=== PATIENT | male | born 1985 | race Caucasian/White ===

== ENCOUNTER 2022-05-01 05:56 | Day surgery (SDC) | payer BC, OTHER ==
--- NOTE | 2022-04-29 15:29 | RAD REPORT ---
EXAM DESCRIPTION: RAD - Chest Pa And Lat (2 Views) - 04/29/2022 3:21 pm CLINICAL HISTORY: Pre op pending hernia surgery COMPARISON: No comparisons FINDINGS: Lines: None. Lungs: No evidence of edema or pneumonia. Pleural: No significant pleural effusions or pneumothorax. Cardiac: The heart size is within normal limits. Bones: No acute fractures. Other: IMPRESSION: No acute cardiopulmonary disease.
[2022-04-29 15:31] LABS: Absolute Lymphocytes (CBC) 1.6 K/uL (0.7-4.9); Hematocrit 42.8 % (39.6-49.0); Lymphocytes % 18.3 % (15.3-44.8); MPV 6.9 fL (7.6-11.3); RBC Red Blood Cell Count 5.09 M/uL (4.33-5.43)
[2022-04-29 15:43] LABS: Potassium 3.8 mmol/L (3.5-5.1)
[2022-04-29 15:51] LABS: SARS-CoV-2 Antigen Rapid Res Negative (Negative)
[2022-05-01] MEDS ORDERED: CEFAZOLIN SODIUM 1 GM/VIAL ONE (06:09)
[2022-05-01] MEDS ORDERED: Ringers Lactate 1,000 ML IV ONE (06:09)
[2022-05-01] MEDS ORDERED: FENTANYL CITR 250 MCG/5 ML ONE (07:16)
[2022-05-01] MEDS ORDERED: propofoL 200 MG/20 ML VIAL IV ONE (07:16)
[2022-05-01] MEDS ORDERED: MIDAZOLAM HCL 2 MG/2 ML INJ ONE (07:16)
[2022-05-01] MEDS ORDERED: ROCURONIUM 50 MG/5 ML VIAL IV ONE (07:16)
[2022-05-01] MEDS ORDERED: GLYCOPYRROLATE 0.2 MG/ML SYR ONE (07:19)
[2022-05-01] MEDS ORDERED: NEOSTIGMINE 1 MG/ML -10 ML VIAL ONE (07:19)
[2022-05-01] MEDS ORDERED: ONDANSETRON 4 MG/2 ML VIAL ONE (07:19)
[2022-05-01] MEDS ORDERED: LIDOCAINE 1% MPF 5 ML VIAL ONE (07:22)
[2022-05-01] MEDS ORDERED: dexAMETHasone 10 MG/ML VIAL ONE (07:56)
[2022-05-01] MEDS ORDERED: Mastisol Adhesive Liq ONE (08:25)
[2022-05-01] MEDS ORDERED: KETOROLAC 30 MG/ML INJ ONE (08:58)
[2022-05-01] MEDS: HYDROMORPHONE HCL 1 MG/ML INJ ONE ×2 (09:12→09:17)
[2022-05-01] MEDS ORDERED: HYDROMORPHONE HCL 1 MG/ML INJ ONE (09:17)
[2022-05-01 09:21] VITALS: TEMP 97
[2022-05-01 10:07] VITALS: BP 117/75; O2SAT 98
== END 2022-05-01 10:00 | disposition home or self-care (01) ==
LOC: OR 05:56
PROVIDERS: ATTEND Surgery
PROC: 0WUF4JZ Supplement Abdominal Wall with Synthetic Substitute, Percutaneous Endoscopic Approach (ICD-10-PCS; principal; 2022-05-01 07:30)
DX: K42.9 Umbilical hernia without obstruction or gangrene (principal); Z20.822 Contact with and (suspected) exposure to COVID-19
CPT/HCPCS: 85025; 80048; 36415; 88302; 71046; 87811; 49652; J2704; J2710; J2250; J3010; J1100; J1170; J7120; J2405; J0690